=== PATIENT | female | born 1955 | race Caucasian/White ===

== ENCOUNTER → 2017-08-30 09:13 | Outpatient (CLI) | payer OTHER, SELFPAY ==
--- NOTE | 2017-08-30 09:20 | HPBI_ITS ---
STEREOTACTIC CORE BIOPSY REASON FOR EXAM: Female, 62 years old. Calcifications in the left breast. PERTINENT HISTORY: Non-contributory. COMPARISON: None. TECHNIQUE: (All elements of maximal sterile barrier technique followed, including US elements as applicable) Upon arrival to the breast imaging department the patient's identification was confirmed and the LEFT breast was marked according to time-out protocol. Stereotactic core biopsy and clip placement, to include potential risks and complications, was explained in full to the patient. Written and verbal consent were obtained prior to initiation of the procedure. The patient was placed in prone position on the stereotactic biopsy table with the LEFT breast in cranial, that compression. [employer] and stereotactic views were then obtained for targeting. The LEFT breast was prepped and draped in standard sterile fashion and local anesthesia was obtained with 1% buffered lidocaine. A small dermatotomy was then made to introduce the core biopsy needle. Multiple core samples were obtained with a 8 gauge vacuum assisted core biopsy needle. The specimen's were radiographed to determine the presence of calcifications and submitted in formalin for pathology. A titanium clip was then deployed into the biopsy cavity. Upon completion of the procedure hemostasis was obtained and sterile dressing was applied. The patient tolerated the entire procedure without immediate complication and was discharged from the breast imaging department in good condition. [facility]/Stereo Breast Biopsy 1st Lesio IMPRESSION: Stereotactic core biopsy for microcalcifications in the LEFT breast without complication. Electronically Signed: Fareed Chahal MD at 12:20 EST Tel [phone], Service support ,
--- NOTE | 2017-08-30 10:25 | BRBX_PTH ---
PATIENT: JUSTIN CORDOVA LOC: [facility] U#:[id number] AGE/SX: 69/F ROOM: RE08/30/[address]: Dr. Dung Ellsworth MD : 1955 BED: DIS: SPEC #: [id number] RECD: 08/30/17 11:54 STATUS: ROSIBEL MARILUZ #: [id number] ALISIA: 08/30/17 10:[address]: Dung Ellsworth DEPT: SURGICAL PATHOLOGY RECD BY: Colin Aj Tissues: Left breast, NOS Procedures: Surgery Specimen Level IV HEADER OPERATION: Left breast stereotactic needle core biopsy PRE-OP DIAGNOSIS: Microcalcifications UOQ TISSUE SUBMITTED: Left breast ISCHEMIC TIME: 2 minutes FIXATION TIME: 9 hours MICROSCOPIC DIAGNOSIS Left breast, stereotactic needle core biopsy: Benign breast tissue with focal dense fibrosis and lobular involution. Negative for atypia or malignancy. Focal microcalcifications. SJ:madi 08/31/17 COMMENT Correlation with clinical, radiologic findings and appropriate follow up are necessary. MICROSCOPIC DESCRIPTION Slides are reviewed. GROSS DESCRIPTION Received in fixative is one container labeled with the patient's name and designated left breast. The specimen consists of multiple elongated fragments of liu-yellow fibroadipose tissue that in aggregate measure 5 x 3 x 0.6 cm. The entire specimen is submitted in four cassettes. / SJ:rg 08/30/17 TC:5 CPT: 96508
== END ==
PROVIDERS: Family Provider Family Medicine; PCP Family Medicine; Visit Provider Family Medicine
DX: N60.32 Fibrosclerosis of left breast (principal); N60.82 Other benign mammary dysplasias of left breast; R92.1 Mammographic calcification found on diagnostic imaging of breast
CPT/HCPCS: 19081; 88305; J7050; A4648